=== PATIENT | female | born 1950 | race Caucasian/White ===

== ENCOUNTER 2019-02-03 11:47 | Outpatient (REF) | payer MEDICARE, SELFPAY ==
[2019-02-03 19:05] LABS: HCT 35.8 % (36.0-46.0); HGB 11.4 g/dL (12.0-15.5); Mean Corp. HGB Concentration 31.8 g/dL (32.0-36.0); Mean Corpuscular Hemoglobin 30.7 pg (27.0-33.0); Mean Corpuscular Volume 96.5 fL (80-95); Mean Platelet Volume 10.4 fL (8.0-11.0); Platelet Count 258 x1000/uL (130-400); RBC 3.71 m/cumm (4.00-5.20); RBC Distribution Width 12.7 % (11.7-14.6); White Blood Cell Count 4.92 k/cumm (4.4-10.8)
[2019-02-03 19:10] LABS: Anion Gap 8.6 mmol/L (3-11); BUN 19 mg/dL (7-18); CO2 26.4 mmol/L (21.0-32.0); Calcium 9.5 mg/dL (8.5-10.1); Chloride 103 mmol/L (98-107); Glucose 86 mg/dL (70-100); Potassium 4.4 mmol/L (3.5-5.1); Sodium 138 mmol/L (136-145)
[2019-02-03 19:54] LABS: COMMENT (LAB VIEW ONLY) 31.93 mg/dL; Microalb ug/mg Crea 71.7 ug/mg Cr
== END 2019-02-03 12:07 ==
LOC: NCHCN 11:47
PROVIDERS: PCP Nurse Practitioner Family; Visit Provider Nurse Practitioner Family
DX: I10 Essential (primary) hypertension (principal); E11.9 Type 2 diabetes mellitus without complications
CPT/HCPCS: 80048; 85027; 82043; 82570

== ENCOUNTER 2019-04-22 08:11 | Outpatient (CLI) | payer MEDICARE, OTHER, SELFPAY ==
[2019-04-22 10:09] LABS: Folate 16.8 ng/mL (8.6-20.0); Vitamin B12 266 pg/mL (193-986)
== END 2019-04-22 08:31 ==
PROVIDERS: PCP Nurse Practitioner Family; Visit Provider Nurse Practitioner Family
DX: R71.8 Other abnormality of red blood cells (principal); I10 Essential (primary) hypertension
CPT/HCPCS: 36415; 82607; 82746